=== PATIENT | female | born 1970 | race Caucasian/White ===

== ENCOUNTER 2018-05-29 10:16 | Emergency (ER) | payer SELFPAY ==
[~2018-05-29] VITALS: Ht 144.8 cm; Wt 77.3 kg
[2018-05-29 10:18] VITALS: BP 127/76
== END 2018-05-29 11:10 | disposition left against medical advice (07) ==
LOC: EMS 10:17
DX: N89.8 Other specified noninflammatory disorders of vagina (principal); Z53.21 Procedure and treatment not carried out due to patient leaving prior to being seen by health care provider

== ENCOUNTER 2019-09-15 17:35 | Emergency (ER) | payer OTHER ==
[~2019-09-15] VITALS: Ht 144.8 cm; Wt 46.4 kg
[2019-09-15] MEDS ORDERED: ALBU8HFA IH (17:45)
[2019-09-15 20:53] LABS: APPEARANCE,URINE CLOUDY (CLEAR); BILIRUBIN,URINE NEGATIVE (NEGATIVE); GLUCOSE, URINE (UA) NEGATIVE (NEGATIVE); KETONES,URINE NEGATIVE (NEGATIVE); LEUKOCYTE ESTERASE ,URINE NEGATIVE (NEGATIVE); NITRATE,URINE NEGATIVE (NEGATIVE); OCCULT BLOOD,URINE NEGATIVE (NEGATIVE); PROTEIN,URINE NEGATIVE (NEGATIVE)
[2019-09-15] MEDS ORDERED: CYCLOBENZAPRINE HCL 10 MG TABLET PO ONE (21:00)
[2019-09-15] MEDS ORDERED: KETOROLAC TROMETHAMINE 60 MG/2 ML VIAL IM ONE (21:00)
[2019-09-15 21:09] VITALS: BP 115/67
== END 2019-09-15 21:15 | disposition home or self-care (01) ==
LOC: EMS 17:35
DX: M54.6 Pain in thoracic spine (principal); J45.909 Unspecified asthma, uncomplicated; F10.20 Alcohol dependence, uncomplicated; F15.90 Other stimulant use, unspecified, uncomplicated; Z79.899 Other long term (current) drug therapy; Z98.890 Other specified postprocedural states
CPT/HCPCS: 81003; 96372; 99283; J1885